=== PATIENT | female | born 1995 | race Caucasian/White ===

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

== ENCOUNTER 2017-02-25 12:32 | Emergency (ER) | payer MEDICAID, OTHER ==
[~2017-02-25] VITALS: Wt 52.0 kg
[2017-02-25] MEDS ORDERED: CEPH-443 PO (12:49)
[2017-02-25] MEDS ORDERED: IBUP-1542 PO (12:49)
[2017-02-25] MEDS ORDERED: SULF1TAB31 PO (12:49)
[2017-02-25] MEDS ORDERED: CEPHALEXIN 500 MG CAP PO ONE (13:00)
[2017-02-25] MEDS ORDERED: TRIMETHOPRIM/SULFAMETHOX (DS) TAB PO ONE (13:00)
[2017-02-25] MEDS ORDERED: IBUPROFEN 600 MG TAB PO ONE (13:00)
[2017-02-25] MEDS ORDERED: LIDOCAINE 1% (MDV) 20 ML INJ SC ONE (13:00)
--- NOTE | 2017-02-25 13:16 | ERD ---
ER Documentation Chief Complaint Date/Time DATE: 02/25/17 TIME: 13:12 Chief Complaint left side nose possible abcess/cyst? HPI 21-year-old female presents with left-sided nasal cystic acne for the past 2 weeks. She says is not improved warm compresses at home. She complains of localized pain. There is no swelling around her eyes. She has no difficulty with vision. No fevers or chills. ROS All systems reviewed and are negative except as per history of present illness. Medications Home Meds Active Scripts Ibuprofen* (Motrin*) 600 Mg Tab, 600 MG PO Q6, #30 TAB Prov:CARLENE LOZANO PA-C 02/25/17 Sulfamethoxazole/Trimethoprim* (Bactrim Ds* Tablet) 1 Each Tablet, 1 TAB PO BID , #14 TAB Prov:CARLENE LOZANO PA-C 02/25/17 Cephalexin* (Keflex*) 500 Mg Capsule, 500 MG PO QID for 7 Days, CAP Prov:CARLENE LOZANO PA-C 02/25/17 Ibuprofen* (Motrin*) 400 Mg Tab, 400 MG PO Q6, #30 TAB Prov:ROBI BURGOS PA-C 09/22/16 Reported Medications [Denies Home Meds] No Conflict Check 07/10/09 Allergies Allergies: Coded Allergies: No Known Drug Allergy (Verified Allergy, Mild, NA, 09/22/16) PMhx/Soc Medical and Surgical Hx: pt denies Medical Hx History of Surgery: Yes (FRACTURE LEFT ARM) Hx Neurological Disorder: No Hx Respiratory Disorders: No Hx Cardiac Disorders: No Hx Psychiatric Problems: No Hx Miscellaneous Medical Probl: No Hx Alcohol Use: No Hx Substance Use: No Hx Tobacco Use: No Smoking Status: Never smoker Physical Exam Vitals Vital Signs Date Time Temp Pulse Resp B/P Pulse Ox O2 Delivery O2 Flow Rate FiO2 02/25/17 12:34 98.3 84 18 116/67 98 Physical Exam General: Well-developed, well-nourished. The patient appears in no acute distress. HEENT: Head is normocephalic, atraumatic. No scleral icterus. There is a 3 cm area of fluctuance of cystic acne on the left side of the nose. It does not involve the jacinda-orbital region. Extraocular movements intact, eyes are Patrick Neck: Supple. Nontender. Lungs: Clear to auscultation. Normal air movement. Heart: Regular rate and rhythm. S1 and S2 are normal. No murmurs, gallops, or rubs. Abdomen: Soft, nontender, nondistended. Bowel sounds are normoactive. Extremities: No clubbing or cyanosis. Normal pulses. Moving extremities x 4. No weakness. Neurologic: Alert and oriented 3. No focal deficits. Skin: Normal turgor. No rash or lesions. Results 24 hrs Current Medications Medications (Trade) Dose Ordered Sig/Angel Route PRN Reason Start Time Stop Time Status Last Admin Dose Admin Cephalexin (Keflex) 500 mg ONCE ONCE PO 02/25/17 13:00 02/25/17 13:01 DC 02/25/17 12:55 Trimethoprim/ Sulfamethoxazole (Bactrim (Ds)) 1 tab ONCE ONCE PO 02/25/17 13:00 02/25/17 13:01 DC 02/25/17 12:55 Ibuprofen (Motrin) 600 mg ONCE ONCE PO 02/25/17 13:00 02/25/17 13:01 DC 02/25/17 12:54 Lidocaine (Xylocaine 1% (Mdv) 20 ml) 20 ml ONCE ONCE SC 02/25/17 13:00 02/25/17 13:01 DC Procedures/MDM ED course: She was given Keflex and Bactrim and ibuprofen. I spoke with the mother as well as patient regarding incision and drainage, making an incision in the area with likely lead to scarring which they are aware. I offered aspiration of the cystic acne, which mother agrees. Aspiration, patient was verbally consented. Wound was prepped with Betadine, lidocaine 1% was applied subcutaneously. Local anesthetic effect achieved. 18-gauge needle was applied to the abscess, aspirated small amount of purulent material as well as serosanguineous fluid. Medical decision makin-year-old female presents with cystic acne that appears to be infected. There is no evidence of periorbital cellulitis or tracking, or deep space infection. The area of fluctuance was anesthetized, and applied a needle for aspiration where I was able to remove a small amount of pus however full drainage was not able to be done. I offered to do an incision at this time however they are reluctant due to the scarring, patient as well as her mother would like to wait on this. She will be advised to continue warm compresses, she was advised to do warm compresses 4 times a day as well as take the oral antibiotics. She is to return sooner if she has any involvement over the eye, worsening swelling or pain otherwise f/u with a second language tutor as soon as possible. Departure Diagnosis: Primary Impression: Cystic acne Condition: Good Patient Instructions: Abscess Drainage Additional Instructions: WOUND CHECK:CONSULTE A MOON MDICO EN 2 [employer] para niko MOON HERIDA. CARLENE LOZANO PA-C Feb 25, 2017 13:15
[2017-02-25] MEDS ORDERED: MUPI22OI2 TOP (13:17)
== END 2017-02-25 13:35 | disposition home or self-care (01) ==
LOC: FTE 12:32
DX: L70.0 Acne vulgaris (principal)
CPT/HCPCS: 10060; Z7502; Z7610